=== PATIENT | male | born 1965 | race Caucasian/White ===

== ENCOUNTER 2020-02-11 20:22 | Emergency (ER) | payer MEDICARE, MEDICAID, SELFPAY ==
[2020-02-11 20:35] VITALS: BP 118/69; PULSE 81; RESP 14; TEMP 36.2; O2SAT 99; BMI 33.0
[2020-02-11 21:20] VITALS: BP 144/82; O2SAT 99
[2020-02-11] MEDS: INSULIN REGULAR 100 UNIT/ML 3 ML VIAL 20 UNIT SUBCUT (21:46)
--- NOTE | 2020-02-11 22:03 | ED_ITS ---
HPI - General Adult General Chief complaint: Diabetic Problem Stated complaint: low blood sugar Time Seen by Provider: 02/11/20 21:18 Source: EMS History of Present Illness HPI narrative: 54-year-old type 1 diabetic with significant increased psychosocial stressors recently was at the [facility] did not eat anything all day but did take his usual insulin and had a hypoglycemic episode. His measured sugar was 40 initially, he was alert awake alert and simply felt a bit weak. He was given glucose as well as orange juice and [facility] staff were concerned blood sugar was not coming up quickly enough. Medics were called patient is transported to the emergency department where he continues to feel well and blood sugars continue to be reassuring. Review of Systems Review of Systems Narrative: Pertinent positive and negative findings as per HPI Remainder of review of systems is otherwise unremarkable for Constitutional: Fevers, chills, weakness ENT: No sore throat, neck pain, ear pain CV: Chest pain, palpitations, dyspnea on exertion Respiratory: Cough, wheeze, dyspnea GI: Nausea, vomiting, diarrhea, change in bowel habits, black or bloody stools : Dysuria, hematuria, flank pain MS: Muscle weakness, numbness, joint swelling or warmth Skin: Rashes, nonhealing lesions Neuro: Syncope, dizziness, tingling Patient History Medical History Smoker (Acute) Type 1 diabetes (Acute) Social History Smoking Status: Current every day smoker Smoking Status: Current every day smoker alcohol intake frequency: 0-2 drinks per day Substance Use Type: does not use Exam Narrative Exam Narrative: General: Alert appropriate in no acute distress Respiratory: Able to speak in full sentences, no obvious respiratory distress Skin: No obvious rashes, warm and dry Neurologic: Grossly intact no obvious asymmetries or abnormalities Psych, appropriate insight and affect, cooperative Initial Vital Signs Initial Vital Signs: Vital Signs Temperature 97.2 F L 02/11/20 20:35 Pulse Rate 81 02/11/20 20:35 Respiratory Rate 14 02/11/20 20:35 Blood Pressure 118/69 02/11/20 20:35 Pulse Oximetry 99 02/11/20 20:35 Course Orders Ordered: Discontinued Medications Insulin Glargine (Lantus (Vial)) 20 unit SUBCUT NOW ONE Stop: 02/11/20 21:30 Insulin Human Regular (Humulin R) 20 unit SUBCUT NOW ONE Stop: 02/11/20 21:41 Last Admin: 02/11/20 21:46 Dose: 20 unit Documented by: ALFREDO Cosigned by: RAYMOND Vital Signs Vital signs: Vital Signs - 8 hr 02/11/20 20:35 02/11/20 21:20 Temperature 97.2 F L Pulse Rate 81 Respiratory Rate 14 Blood Pressure 118/69 144/82 H Pulse Oximetry 99 99 Medical Decision Making Lab Data Labs: Point of Care Testing Glucose POC 227 Point of care testing: Point of Care Testing Glucose POC 227 MDM Narrative Medical decision making narrative: 54-year-old type 1 diabetic not eating all day to stressors with hypoglycemic episode that was minimally symptomatic. Resolved at this time. Blood sugars are now higher than his goal after all of the juice and candy that he ate. He is given 20 units of Humalog and is planning to have dinner within the next 30 minutes. He is safe for discharge. Discharge Plan Departure Patient Disposition: Home Clinical Impression: Hypoglycemia Diabetes mellitus Qualifiers: Diabetes mellitus type: type 1 Instructions: DI for Hypoglycemia Activity Restrictions/Additional Instructions: I am sorry that stressors have piled up recently. It still is vital that you eat during the day. I understand how hard it can be sometimes. I very much appreciate the effort that your putting in to keeping your blood sugars under better control. When you do not eat your blood sugars go low. That to happen today. It has come up nicely with food. With perhaps overshot just a bit with your sugar above 200 now. I am going to give you 20 units of your short-acting insulin right now. You need to go home and have dinner. Please add your Humalog correction if needed tonight before bed while your dosing your Lantus. Because you did have this episode of very low sugar today I am going to suggest that you set an alarm for 3am just to check your blood sugar and make sure that is not too low. Good luck with your endocrinology appointment tomorrow!
== END 2020-02-11 21:50 | disposition home or self-care (01) ==
PROVIDERS: Emergency Provider Emergency Medicine
DX: E10.649 Type 1 diabetes mellitus with hypoglycemia without coma (principal); Z79.4 Long term (current) use of insulin
CPT/HCPCS: 82962; 96372; 99282; 99283

== ENCOUNTER 2020-02-13 11:52 | Emergency (ER) | payer MEDICARE, MEDICAID, SELFPAY ==
[2020-02-13] VITALS (20 sets, daily range): BP systolic 134–166; BP diastolic 64–108; PULSE 96–122; RESP 12–38; TEMP 37.1; O2SAT 94–99
[2020-02-13 12:21] LABS: Add Manual Diff / Slide Review NO; Basophils Absolute Auto 100 /uL (0-100); Basophils Percent Auto 0.6 % (0-2); Eosinophils Absolute Auto 0 /uL (0-450); Hematocrit 41.5 % (41-53); Hemoglobin 13.8 g/dL (13.5-17.5); Lymphocytes Absolute Auto 1100 /uL (1100-4500); Lymphocytes Percent Auto 8.3 % (25-40); Mean Corpuscular HGB Conc 33.4 % (30-36); Mean Corpuscular Hemoglobin 30.5 PG (26-34); Mean Corpuscular Volume 91.5 fL (80-100); Monocytes Absolute Auto 1000 /uL (0-900); Neutrophils Absolute Auto 11400 /uL (1500-7000); Neutrophils Percent Auto 84.1 % (50-75); Platelet Count 332 X10^3/uL (150-400); Red Blood Cell Count 4.53 X10^6/uL (4.5-5.9); Red Cell Distribution Width 13.5 % (11.6-14.8); White Blood Cell Count 13.5 X10^3/uL (4.5-11.0)
--- NOTE | 2020-02-13 12:22 | ED.GENADULT ---
HPI - General Adult General Chief complaint: Diabetic Problem Stated complaint: diabetic ketoacidosis Time Seen by Provider: 02/13/20 12:09 Source: patient Mode of arrival: Ambulatory Limitations: no limitations History of Present Illness HPI narrative: CC persistent nausea and vomiting, questionable diabetic ketoacidosis HPI: The patient is a 54-year-old male who is and diabetic. He took a his insulin this morning. He woke up with severe persistent recurrent nausea with vomiting. He states that he has had diabetic ketoacidosis in the past and this is identical to when he develops diabetic ketoacidosis. He has had diffuse abdominal cramps. He has had hiccups with some chest discomfort after hiccuping. He denies any shortness of breath or cough otherwise. He has had palpitations with racing of his heart dizziness with lightheadedness. He has had blurred vision but no loss of vision. He has had chills with sweats but no fever. He has had no headache. He has some degree of arc persistent back ache. There has been no melena hematochezia hematemesis or coffee-ground emesis. He has had mild diarrhea. He has had no urinary symptoms associated with this. He denies a history of pancreatitis hypertension congestive heart failure or heart attack. The patient states that he has a history of hepatitis-C but no HIV TB or Covid. 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 He states that he stopped drinking alcohol when he became diabetic. Related Data Home Medications Medication Instructions Recorded Confirmed amitriptyline 50 mg PO BEDTIME 02/13/20 02/13/20 atorvastatin 20 mg PO DAILY 02/13/20 02/13/20 blood sugar diagnostic [True 02/13/20 02/13/20 Metrix Glucose Test Strip] insulin glargine [Lantus U-100 30 unit SUBCUT BEDTIME 02/13/20 02/13/20 Insulin] insulin glargine [Lantus U-100 35 unit SUBCUT QAM 02/13/20 02/13/20 Insulin] insulin lispro [Humalog U-100 20 - 25 sliding scale dose SUBCUT 02/13/20 02/13/20 Insulin] 5XD insulin syringe-needle U-100 [BD 02/13/20 02/13/20 Insulin Syringe Ultra-Fine] losartan 50 mg PO DAILY 02/13/20 02/13/20 metformin 1,000 mg PO BID 02/13/20 02/13/20 omeprazole 20 mg PO BID 02/13/20 02/13/20 paroxetine HCl 20 mg PO DAILY 02/13/20 02/13/20 prazosin 1 mg PO BEDTIME 02/13/20 02/13/20 Previous Rx's Medication Instructions Recorded diphenhydramine HCl [Benadryl 25 mg PO Q6H PRN #14 tab 02/13/20 Allergy] ondansetron HCl [Zofran] 4 mg PO Q6H PRN #12 tab 02/13/20 prochlorperazine maleate 10 mg PO Q6H PRN #14 tab 02/13/20 [Compazine] Allergies Allergy/AdvReac Type Severity Reaction Status Date / Time No Known Drug Allergies Allergy Verified 02/13/20 12:18 Review of Systems Review of Systems Narrative: Review of systems were all negative except for those mentioned in the history of present illness. Patient History Medical History Smoker (Acute) Type 1 diabetes (Acute) Social History Smoking Status: Current every day smoker Smoking Status: Current every day smoker alcohol intake frequency: 0-2 drinks per day Substance Use Type: former substance user Exam Narrative Exam Narrative: PHYSICAL EXAM: CONSTITUTIONAL: Awake, Alert, Oriented, Coherent, Cooperative, speaks softly, is very dishevelled and sweaty. HEAD: Atraumatic normocephalic. EENT: PERRL, FROM of eyes, no discharge, no nystagmus NOSE:No epistaxis or nasal drainage MOUTH:Oral mucosa is moist and pink. NECK: Supple, no obvious JVD, Trachea is midline without stridor. SPINE: Palpationof the cervical, Thoracic, Lumbar or Sacral spine reveals no gross deformity or tenderness. No CVA tenderness. THORAX: No deformity, retractions, chest wall tenderness. LUNGS: Clear, symmetrical breath sounds without respiratory distress. HEART: Tachycardic, no murmur, regular rhythm. ABDOMEN: Diffusely tender, soft, no palpable mass. No rigidity or rebound. EXTREMITIES: No edema, deformity, tenderness or cyanosis. SKIN: No rash, bruising. NEURO: Awake, alert, oriented, conversive, cranial nerves II-XII are symmetrical , moves all 4 extremities and is ambulatory. MENTAL HEALTH: Does not appear anxious or depressed. Initial Vital Signs Initial Vital Signs: Vital Signs Temperature 98.7 F 02/13/20 11:55 Pulse Rate 122 H 02/13/20 11:55 Respiratory Rate 32 H 02/13/20 11:55 Blood Pressure 142/93 H 02/13/20 11:55 Pulse Oximetry 99 02/13/20 11:55 Course Course Course Narrative: 1237: PH is 7.342 pCO2 is 47.4 bicarb is 25.7 total CO2 is 27. 1355: Patient has received 1 L of IV fluid. He was administered 7 units of regular insulin IV. His potassium is 5.2 ketones are elevated at 2.3 to his venous pH is 7.34 GFR is greater than 60 lactate is 1.5 white blood count is 13.5 anion gap is 13 blood sugar was 445 will repeat a blood sugar. I will call the hospitalist Dr. Allen to admit the patient. 1440: I discussed the patient with Dr. Allen who does not feel as though the patient needs to be admitted at this time. His blood sugar has improved to 264, his urine is positive for methamphetamine, THC, we are waiting for the CT report of his abdomen. Will call radiology to get a report. He is currently being rehydrated him and he has not been vomiting since he has been here in the emergency department. 1516: The patient has received 2 L of normal saline and he remains tachycardic at between 108 and 110. He will be administered 1/3 L of fluid. He is no longer tremulous after being administered the Benadryl and Compazine. He was asking whether not he was going to be admitted to the hospital. I explained to him that the hospitalist initially reviewing his laboratory test did not feel that he need to be admitted to the hospital. The patient's report of the CT scan of his abdomen remains pending. I did not see it in PACS nor do I see it in the patient's medical record viewer. 1532: requested a copy of the CT report from radiology of the abdomen. I can not access the report through PACS and does not appear in our system 1550: The patient is in the process of receiving his 3rd L of fluid. CT scan of the patient's abdomen reveals no imaging explanation is found for this patient's presenting symptoms. Fatty stranding is seen involving the subcutaneous fat within the periumbilical region correlate clinically with potential cellulitis. Incidental note is made of bilateral fat containing inguinal hernias. S shaped scoliotic curvature. Focal L1-2 degenerative changes. 1751: I read discussed the patient with Dr. Allen who did not feel that the patient needed to be admitted to the hospital. The patient's heart rate remained [place] probably secondary to the methamphetamine that he took. The patient was administered 3 L of normal saline to rehydrate him and his heart rate finally came down to90-96. He will be discharged. 1800: The patient was given discharge instructions and he was very upset when I told him that his urine came back positive for methamphetamine. Orders Ordered: Discontinued Medications Diphenhydramine HCl (Benadryl) 25 mg IV NOW ONE Stop: 02/13/20 14:27 Last Admin: 02/13/20 14:47 Dose: 25 mg Documented by: LEYLA Sodium Chloride (Normal Saline 0.9%) 1,000 mls @ 1,000 mls/hr IV BOLUS ONE Stop: 02/13/20 13:12 Last Infusion: 02/13/20 13:55 Dose: 0 mls/hr Documented by: Admin: 02/13/20 12:26 Dose: 1,000 mls/hr Documented by: LEYLA Sodium Chloride (Normal Saline 0.9%) 1,000 mls @ 1,000 mls/hr IV BOLUS ONE Stop: 02/13/20 14:56 Last Infusion: 02/13/20 15:15 Dose: 0 mls/hr Documented by: Admin: 02/13/20 14:01 Dose: 1,000 mls/hr Documented by: LEYLA Sodium Chloride (Normal Saline 0.9%) 1,000 mls @ 1,000 mls/hr IV BOLUS ONE Stop: 02/13/20 16:28 Last Infusion: 02/13/20 16:47 Dose: 0 mls/hr Documented by: Admin: 02/13/20 15:30 Dose: 1,000 mls/hr Documented by: LEYLA Insulin Human Regular (Humulin R) 7 unit SUBCUT NOW ONE Stop: 02/13/20 12:40 Last Admin: 02/13/20 12:44 Dose: 7 unit Documented by: LEYLA Cosigned by: CASSIDY Ketorolac Tromethamine (Toradol) 30 mg IV NOW ONE Stop: 02/13/20 12:25 Last Admin: 02/13/20 12:27 Dose: 30 mg Documented by: LEYLA Morphine Sulfate (Morphine) 4 mg IV NOW ONE Stop: 02/13/20 13:56 Last Admin: 02/13/20 14:00 Dose: 4 mg Documented by: LEYLA Ondansetron HCl (Zofran) 8 mg IV NOW ONE Stop: 02/13/20 12:14 Last Admin: 02/13/20 12:26 Dose: 8 mg Documented by: LEYLA Ondansetron HCl (Zofran) 4 mg IV NOW ONE Stop: 02/13/20 13:57 Last Admin: 02/13/20 14:00 Dose: 4 mg Documented by: LEYLA Prochlorperazine (Compazine) 10 mg IV NOW ONE Stop: 02/13/20 14:27 Last Admin: 02/13/20 14:47 Dose: 10 mg Documented by: LEYLA Vital Signs Vital signs: Vital Signs - 8 hr 02/13/20 11:55 02/13/20 12:05 02/13/20 12:10 Temperature 98.7 F 98.7 F Pulse Rate 122 H 113 H Respiratory Rate 32 H 28 H Blood Pressure 142/93 H Blood Pressure [Left Arm] 142/93 H Pulse Oximetry 99 96 02/13/20 12:11 02/13/20 12:30 02/13/20 12:33 Temperature Pulse Rate 115 H 114 H 110 H Respiratory Rate 35 H 24 Blood Pressure 147/94 H Blood Pressure [Left Arm] Pulse Oximetry 96 95 94 02/13/20 12:55 02/13/20 13:00 02/13/20 13:30 Temperature Pulse Rate 108 H 109 H 108 H Respiratory Rate 33 H 32 H 24 Blood Pressure 166/98 H 166/87 H Blood Pressure [Left Arm] Pulse Oximetry 96 94 96 02/13/20 13:31 02/13/20 14:00 02/13/20 14:30 Temperature Pulse Rate 108 H 121 H 104 H Respiratory Rate 28 H 38 H 25 H Blood Pressure 154/64 H 147/108 H 144/86 H Blood Pressure [Left Arm] Pulse Oximetry 96 97 96 02/13/20 14:47 02/13/20 15:00 02/13/20 15:30 Temperature Pulse Rate 105 H 104 H 102 H Respiratory Rate 25 H 16 Blood Pressure 144/86 H 143/76 H 137/74 Blood Pressure [Left Arm] Pulse Oximetry 02/13/20 16:00 02/13/20 16:04 02/13/20 16:30 Temperature Pulse Rate 101 H 100 H 101 H Respiratory Rate 22 16 19 Blood Pressure 137/77 136/81 Blood Pressure [Left Arm] Pulse Oximetry 98 02/13/20 17:00 02/13/20 17:30 Temperature Pulse Rate 96 H 101 H Respiratory Rate 16 20 Blood Pressure 134/77 144/84 H Blood Pressure [Left Arm] Pulse Oximetry Medical Decision Making Medical Records Medical records reviewed: Yes I reviewed the patient's medical records. Lab Data Lab results reviewed: Yes I reviewed the patient's lab results. Result diagrams: 02/13/20 12:10 02/13/20 14:05 Labs: Lab Results 02/13/20 02/13/20 02/13/20 Range/Units 12:00 12:10 12:10 WBC 13.5 H (4.5-11.0) X10^3/uL RBC 4.53 (4.5-5.9) X10^6/uL Hgb 13.8 (13.5-17.5) g/dL Hct 41.5 (41-53) % MCV 91.5 (80-100) fL MCH 30.5 (26-34) PG MCHC 33.4 (30-36) % RDW 13.5 (11.6-14.8) % Plt Count 332 (150-400) X10^3/uL Neut % (Auto) 84.1 H (50-75) % Lymph % (Auto) 8.3 L (25-40) % [place] % (Auto) 7.0 (3-14) % Eos % (Auto) 0.0 L (2-4) % Baso % (Auto) 0.6 (0-2) % Neut # (Auto) 75142 H (0066-2694) /uL Lymph # (Auto) 1100 (2504-9467) /uL [place] # (Auto) 1000 H (0-900) /uL Eos # (Auto) 0 (0-450) /uL Baso # (Auto) 100 (0-100) /uL VBG pH (7.33-7.43) VBG pCO2 (45-50) mmHg VBG pO2 (35-45) mmHg VBG HCO3 (23-28) mmol/L VBG Total CO2 (24-29) mmol/L VBG O2 Saturation (70-75) % VBG Base Excess (0-4) mmol/L Sodium (137-145) mmol/L Potassium (3.4-5.1) mmol/L Chloride (98-107) mmol/L Carbon Dioxide (22-32) mmol/L BUN (9-20) mg/dL Creatinine (0.66-1.25) mg/dL Estimated GFR (>60) mL/min BUN/Creatinine Ratio (6-22) Glucose (70-100) mg/dL Lactate (0.7-2.1) mmol/L Calcium (8.4-10.2) mg/dL Total Bilirubin (0.2-1.3) mg/dL AST (17-59) IU/L ALT (<50) IU/L Alkaline Phosphatase (38-126) U/L Total Protein (6.3-8.2) g/dL Albumin (3.5-5.0) g/dL Globulin (1.7-4.1) g/dL Albumin/Globulin Ratio (1.0-2.8) Lipase 35 (23-300) U/L Procalcitonin < 0.05 (<0.5) ng/mL Urine Color Urine Appearance Urine pH (4.5-8.0) Ur Specific [place] (1.000-1.035) Urine Protein (Negative) Urine Glucose (UA) (Negative) g/dL Urine Ketones (NEGATIVE) Urine Occult Blood (Negative) Urine Nitrate (Negative) Urine Bilirubin (NEGATIVE) Urine Urobilinogen (0.2) E.U./dL Ur Leukocyte Esterase (NEGATIVE) Urine RBC (0-5/HPF) Urine WBC (0-5/HPF) Ur Squamous Epith Cells (0-5/HPF) Urine Bacteria (None) Ur Culture Indicated? U Opiates 300ng/mL cut (Negative) Ur Oxycodone Screen (Negative) Urine Methadone Screen (Negative) Ur Barbiturates Screen (Negative) U Tricyclic Antidepress (Negative) Ur Phencyclidine Scrn (Negative) Ur Amphetamines Screen (Negative) U Methamphetamines Scrn (Negative) Ur MDMA Scrn (Ecstasy) (Negative) U Benzodiazepines Scrn (Negative) Urine Cocaine Screen (Negative) U Marijuana (THC) Screen (Negative) Ethyl Alcohol < 10 ( - 10) mg/dL Ketones (<0.27) mmol/L 02/13/20 02/13/20 02/13/20 Range/Units 12:10 12:10 12:13 WBC (4.5-11.0) X10^3/uL RBC (4.5-5.9) X10^6/uL Hgb (13.5-17.5) g/dL Hct (41-53) % MCV (80-100) fL MCH (26-34) PG MCHC (30-36) % RDW (11.6-14.8) % Plt Count (150-400) X10^3/uL Neut % (Auto) (50-75) % Lymph % (Auto) (25-40) % [place] % (Auto) (3-14) % Eos % (Auto) (2-4) % Baso % (Auto) (0-2) % Neut # (Auto) (5724-0126) /uL Lymph # (Auto) (4348-8161) /uL [place] # (Auto) (0-900) /uL Eos # (Auto) (0-450) /uL Baso # (Auto) (0-100) /uL VBG pH 7.34 (7.33-7.43) VBG pCO2 47.4 (45-50) mmHg VBG pO2 24 L (35-45) mmHg VBG HCO3 26 (23-28) mmol/L VBG Total CO2 27 (24-29) mmol/L VBG O2 Saturation 38 L (70-75) % VBG Base Excess 0.0 (0-4) mmol/L Sodium 137 (137-145) mmol/L Potassium 5.2 H (3.4-5.1) mmol/L Chloride 101 (98-107) mmol/L Carbon Dioxide 23 (22-32) mmol/L BUN 27 H (9-20) mg/dL Creatinine 0.99 (0.66-1.25) mg/dL Estimated GFR > 60.0 (>60) mL/min BUN/Creatinine Ratio 27.3 H (6-22) Glucose 445 H (70-100) mg/dL Lactate 1.5 (0.7-2.1) mmol/L Calcium 9.9 (8.4-10.2) mg/dL Total Bilirubin 0.8 (0.2-1.3) mg/dL AST 55 (17-59) IU/L ALT 52 H (<50) IU/L Alkaline Phosphatase 131 H (38-126) U/L Total Protein 7.9 (6.3-8.2) g/dL Albumin 4.8 (3.5-5.0) g/dL Globulin 3.1 (1.7-4.1) g/dL Albumin/Globulin Ratio 1.5 (1.0-2.8) Lipase (23-300) U/L Procalcitonin (<0.5) ng/mL Urine Color Urine Appearance Urine pH (4.5-8.0) Ur Specific [place] (1.000-1.035) Urine Protein (Negative) Urine Glucose (UA) (Negative) g/dL Urine Ketones (NEGATIVE) Urine Occult Blood (Negative) Urine Nitrate (Negative) Urine Bilirubin (NEGATIVE) Urine Urobilinogen (0.2) E.U./dL Ur Leukocyte Esterase (NEGATIVE) Urine RBC (0-5/HPF) Urine WBC (0-5/HPF) Ur Squamous Epith Cells (0-5/HPF) Urine Bacteria (None) Ur Culture Indicated? U Opiates 300ng/mL cut (Negative) Ur Oxycodone Screen (Negative) Urine Methadone Screen (Negative) Ur Barbiturates Screen (Negative) U Tricyclic Antidepress (Negative) Ur Phencyclidine Scrn (Negative) Ur Amphetamines Screen (Negative) U Methamphetamines Scrn (Negative) Ur MDMA Scrn (Ecstasy) (Negative) U Benzodiazepines Scrn (Negative) Urine Cocaine Screen (Negative) U Marijuana (THC) Screen (Negative) Ethyl Alcohol ( - 10) mg/dL Ketones 2.32 H (<0.27) mmol/L 02/13/20 02/13/20 02/13/20 Range/Units 14:05 14:05 14:05 WBC (4.5-11.0) X10^3/uL RBC (4.5-5.9) X10^6/uL Hgb (13.5-17.5) g/dL Hct (41-53) % MCV (80-100) fL MCH (26-34) PG MCHC (30-36) % RDW (11.6-14.8) % Plt Count (150-400) X10^3/uL Neut % (Auto) (50-75) % Lymph % (Auto) (25-40) % [place] % (Auto) (3-14) % Eos % (Auto) (2-4) % Baso % (Auto) (0-2) % Neut # (Auto) (9265-9187) /uL Lymph # (Auto) (7302-4021) /uL [place] # (Auto) (0-900) /uL Eos # (Auto) (0-450) /uL Baso # (Auto) (0-100) /uL VBG pH (7.33-7.43) VBG pCO2 (45-50) mmHg VBG pO2 (35-45) mmHg VBG HCO3 (23-28) mmol/L VBG Total CO2 (24-29) mmol/L VBG O2 Saturation (70-75) % VBG Base Excess (0-4) mmol/L Sodium (137-145) mmol/L Potassium (3.4-5.1) mmol/L Chloride (98-107) mmol/L Carbon Dioxide (22-32) mmol/L BUN (9-20) mg/dL Creatinine (0.66-1.25) mg/dL Estimated GFR (>60) mL/min BUN/Creatinine Ratio (6-22) Glucose 265 H D (70-100) mg/dL Lactate (0.7-2.1) mmol/L Calcium (8.4-10.2) mg/dL Total Bilirubin (0.2-1.3) mg/dL AST (17-59) IU/L ALT (<50) IU/L Alkaline Phosphatase (38-126) U/L Total Protein (6.3-8.2) g/dL Albumin (3.5-5.0) g/dL Globulin (1.7-4.1) g/dL Albumin/Globulin Ratio (1.0-2.8) Lipase (23-300) U/L Procalcitonin (<0.5) ng/mL Urine Color Yellow Urine Appearance Clear Urine pH 5.0 (4.5-8.0) Ur Specific [place] 1.010 (1.000-1.035) Urine Protein Negative (Negative) Urine Glucose (UA) 2+ H (Negative) g/dL Urine Ketones 2+ H (NEGATIVE) Urine Occult Blood Negative (Negative) Urine Nitrate Negative (Negative) Urine Bilirubin Negative (NEGATIVE) Urine Urobilinogen 0.2 (0.2) E.U./dL Ur Leukocyte Esterase Negative (NEGATIVE) Urine RBC None seen (0-5/HPF) Urine WBC 0-1/hpf (0-5/HPF) Ur Squamous Epith Cells 0-1 /hpf (0-5/HPF) Urine Bacteria Occasional (0-1) (None) Ur Culture Indicated? Cult not indicated U Opiates 300ng/mL cut Negative (Negative) Ur Oxycodone Screen Negative (Negative) Urine Methadone Screen Negative (Negative) Ur Barbiturates Screen Negative (Negative) U Tricyclic Antidepress Positive H (Negative) Ur Phencyclidine Scrn Negative (Negative) Ur Amphetamines Screen Negative (Negative) U Methamphetamines Scrn Positive H (Negative) Ur MDMA Scrn (Ecstasy) Negative (Negative) U Benzodiazepines Scrn Negative (Negative) Urine Cocaine Screen Negative (Negative) U Marijuana (THC) Screen Positive H (Negative) Ethyl Alcohol ( - 10) mg/dL Ketones (<0.27) mmol/L Point of Care Testing Glucose POC 214 Point of care testing: Point of Care Testing Glucose POC 214 ECG Data Attestation: I personally reviewed and interpreted this ECG as follows: Interpretation: EKG obtained at 12:13 p.m. reveals a normal sinus rhythm with a ventricular rate of 111. QTC is borderline prolonged at 459 milliseconds axis is normal. T-waves are inverted in V1. ST segments are nonspecific and nondiagnostic at this time. Discharge Plan Departure Patient Disposition: Home Clinical Impression: Smoker, Retching, Diabetic ketosis, Acute hyperglycemia, Methamphetamine use Type 1 diabetes Qualifiers: Diabetes mellitus complication status: with other specified complication Qualified Code(s): E10.69 - Type 1 diabetes mellitus with other specified complication Diarrhea Qualifiers: Diarrhea type: unspecified type Qualified Code(s): R19.7 - Diarrhea, unspecified Discharge Date/Time: 02/13/20 18:15 Instructions: DI for Diabetes Type 1 -- Adult, DI for Nausea -- Adult, DI for Vomiting -- Adult, DI for Diabetic Ketoacidosis Activity Restrictions/Additional Instructions: 1. Be sure that you are taking your insulins as directed. 2. You had diabetic ketosis without evidence of acidosis at this time. You were dehydrated. You need to drink between 2 and 4 L of fluid per day to keep yourself hydrated. 3. Avoidance stop using methamphetamine. 4. For your nausea, vomiting and hiccups you can take Compazine 10 mg every 6 hours in combination with Benadryl 25 mg orally. 5. If this does not control your vomiting you can take Zofran 4 mg every 6 hours as needed 6. Follow-up with your primary care physician and be re-evaluated in 48-72 hours. Prescriptions: New prochlorperazine maleate [Compazine] 10 mg tablet 10 mg PO Q6H PRN (Reason: nausea and vomiting) Qty: 14 RF: 0 diphenhydramine HCl [Benadryl Allergy] 25 mg tablet 25 mg PO Q6H PRN (Reason: nausea and vomiting) Qty: 14 RF: 0 ondansetron HCl [Zofran] 4 mg tablet 4 mg PO Q6H PRN (Reason: nausea and vomiting) Qty: 12 RF: 0 No Action losartan 50 mg tablet 50 mg PO DAILY RF: 0 atorvastatin 20 mg tablet 20 mg PO DAILY RF: 0 Lantus U-100 Insulin 100 unit/mL solution 35 unit SUBCUT QAM RF: 0 Lantus U-100 Insulin 100 unit/mL solution 30 unit SUBCUT BEDTIME RF: 0 prazosin 1 mg capsule 1 mg PO BEDTIME RF: 0 (DME) blood sugar diagnostic [True Metrix Glucose Test Strip] Strip MISCELLANEOUS RF: 0 amitriptyline 50 mg tablet 50 mg PO BEDTIME RF: 0 paroxetine HCl 20 mg tablet 20 mg PO DAILY RF: 0 metformin 1,000 mg tablet 1,000 mg PO BID RF: 0 omeprazole 20 mg capsule,delayed release(DR/EC) 20 mg PO BID RF: 0 (DME) insulin syringe-needle U-100 [BD Insulin Syringe Ultra-Fine] 0.5 mL 30 gauge x 1/2 syringe MISCELLANEOUS RF: 0 insulin lispro [Humalog U-100 Insulin] 100 unit/mL solution 20 - 25 sliding scale dose SUBCUT 5XD RF: 0
--- NOTE | 2020-02-13 12:24 | DI.CT.S_ITS ---
PROCEDURE: CT ABDOMEN PELVIS W CON INDICATIONS: persistent abdominal pain with nausea and vomiting TECHNIQUE: After the administration of intravenous contrast, 5 mm thick sections acquired from the diaphragm to the symphysis. 5 mm coronal and sagittal reformats were acquired. For radiation dose reduction, the following was used: automated exposure control, adjustment of mA and/or kV according to patient size. COMPARISON: [facility], CR, XR CHEST 1V, 02/13/2020, 11:43. FINDINGS: Image quality: Excellent. ABDOMEN: Lung bases: Lung bases are clear. Heart size is normal. Solid organs: Liver is normal in size and enhancement. Gallbladder wall is not thickened. Biliary system is non dilated. Pancreas enhances normally. Spleen is normal in size and enhancement. Accessory splenules are seen anterior and inferior to the primary spleen. No adrenal nodules. Kidneys demonstrate normal size and enhancement, without hydronephrosis. Peritoneum and bowel: Bowel loops demonstrate normal wall thickness and caliber. No free fluid or air. Nodes and vessels: No retroperitoneal or mesenteric adenopathy by size criteria. Aorta and inferior vena cava are normal in size. Miscellaneous: No ventral hernias. Fatty stranding can be seen involving the subcutaneous fat of the periumbilical region. PELVIS: Genitourinary: Bladder wall thickness is normal. Miscellaneous: No inguinal adenopathy. Bilateral fat containing inguinal hernias are seen, right larger than left. Bones: No suspicious bony lesions. No vertebral body compression fractures. S-shaped scoliotic curvature is seen. Degenerative changes are seen, which are most prominent at the L1-L2 level. IMPRESSION: No imaging explanation is found for this patient's presenting symptoms. Fatty stranding is seen involving the subcutaneous fat within the periumbilical region. Please correlate for potential cellulitis. Incidental note is made of: Bilateral fat containing inguinal hernias S-shaped scoliotic curvature Focal L1-2 degenerative change. Dictated by: Valeriano Wylie M.D. on 02/13/2020 at 12:20 Approved by: Valeriano Wylie M.D. on 02/13/2020 at 12:23
[2020-02-13] MEDS: ONDANSETRON 4 MG/2 ML INJ 8 MG IV (12:26)
[2020-02-13] MEDS: SODIUM CHLORIDE 0.9% 1,000 ML 1000 ML IV ×3 (12:26→15:30)
--- NOTE | 2020-02-13 12:26 | DI.RAD.S_ITS ---
PROCEDURE: XR CHEST 1V INDICATIONS: abd pain, persistent vomiting , ? DKA TECHNIQUE: One view of the chest was acquired. COMPARISON: None. FINDINGS: Surgical changes and devices: None. Lungs and pleura: Lungs are clear. No pleural effusions or pneumothorax. Mediastinum: The cardiac contours are within normal limits. The aorta demonstrates calcification and tortuosity. Bones and chest wall: No suspicious bony lesions. Overlying soft tissues appear unremarkable. IMPRESSION: Portable chest within normal limits. Dictated by: Valeriano Wylie M.D. on 02/13/2020 at 12:00 Approved by: Valeriano Wylie M.D. on 02/13/2020 at 12:00
[2020-02-13] MEDS: KETOROLAC 60 MG/2 ML VIAL 30 MG IV (12:27)
[2020-02-13 12:31] LABS: Alanine Aminotransferase 52 IU/L (<50); Albumin 4.8 g/dL (3.5-5.0); Albumin Globulin Ratio 1.5 (1.0-2.8); Alkaline Phosphatase 131 U/L (38-126); Aspartate Aminotransferase 55 IU/L (17-59); BUN Creatinine Ratio 27.3 (6-22); Bilirubin Total 0.8 mg/dL (0.2-1.3); Blood Urea Nitrogen 27 mg/dL (9-20); Calcium 9.9 mg/dL (8.4-10.2); Carbon Dioxide 23 mmol/L (22-32); Chloride 101 mmol/L (98-107); Estimated Glomerular Filt Rate > 60.0 mL/min (>60); Globulin 3.1 g/dL (1.7-4.1); Glucose 445 mg/dL (70-100); HEMOLYSIS < 15 (0-50); Lactate (Lactic Acid) 1.5 mmol/L (0.7-2.1); Potassium 5.2 mmol/L (3.4-5.1); Sodium 137 mmol/L (137-145); Total Protein 7.9 g/dL (6.3-8.2)
[2020-02-13 12:33] LABS: Ketones (Beta-Hydroxybutyrate) 2.32 mmol/L (<0.27)
[2020-02-13 12:39] LABS: Ethanol (ETOH) < 10 mg/dL; Lipase 35 U/L (23-300)
[2020-02-13] MEDS: INSULIN REGULAR 100 UNIT/ML 3 ML VIAL 7 UNIT SUBCUT (12:44)
[2020-02-13 12:45] LABS: Procalcitonin < 0.05 ng/mL (<0.5)
[2020-02-13 12:59] LABS: HCO3 VBG 26 mmol/L (23-28); Oxygen Saturation VBG 38 % (70-75); PCO2 VBG 47.4 mmHg (45-50); PO2 VBG 24 mmHg (35-45); Total CO2 VBG 27 mmol/L (24-29); pH VBG 7.34 (7.33-7.43)
[2020-02-13] MEDS: MORPHINE 4 MG/ML INJ IV (14:00)
[2020-02-13] MEDS: ONDANSETRON 4 MG/2 ML INJ IV (14:00)
[2020-02-13 14:17] LABS: Appearance Urine UA CLEAR; Bilirubin Urine UA NEGATIVE (NEGATIVE); Color Urine UA YELLOW; Glucose Urine UA 2+ g/dL (Negative); Ketones Urine UA 2+ (NEGATIVE); Leukocyte Esterase Urine UA NEGATIVE (NEGATIVE); Nitrite Urine UA NEGATIVE (Negative); Occult Blood Urine UA NEGATIVE (Negative); Protein Urine UA NEGATIVE (Negative); Urobilinogen Urine UA 0.2 E.U./dL (0.2)
[2020-02-13 14:23] LABS: UR Morphine/Opiate cutoff 300 Negative (Negative); Ur Creatinine Normal (Normal); Ur Specific Gravity Normal (Normal); Urine Amphetamines Negative (Negative); Urine Barbiturates Negative (Negative); Urine Benzodiazepines Negative (Negative); Urine Cocaine Negative (Negative); Urine MDMA Negative (Negative); Urine Methadone Negative (Negative); Urine Methamphetamines Positive (Negative); Urine Oxycodone Negative (Negative); Urine Phencyclidine Negative (Negative); Urine Tetrahydrocannabinol Positive (Negative); Urine Tricyclic Antidepressant Positive (Negative); Urine pH Normal (Normal)
[2020-02-13 14:24] LABS: Glucose 265 mg/dL (70-100)
[2020-02-13 14:28] LABS: Bacteria Urine Occasional (0-1); Culture Indicated Urine Cult Not Indicated; RBC Urine None Seen (0-5/HPF); Squamous Epithelial Cell Urine 0-1 /HPF (0-5/HPF); WBC Urine 0-1/HPF (0-5/HPF)
[2020-02-13] MEDS: PROCHLORPERAZINE 10 MG/2 ML VIAL IV (14:47)
[2020-02-13] MEDS: diphenhydrAMINE 50 MG/ML VIAL 25 MG IV (14:47)
--- NOTE | 2020-02-13 15:41 | PC.NURSE ---
Pt and sponsor concerned about patients shaking. Explained that Dr. Urrutia is aware and we are giving him more fluids. Pt sponsor asks about us giving pt the full treatment and also looking at his bandages and replacing them. They both verbalizes that surgeon asked for bandages to remain in place until followup however bandages appear soiled. I informed them that we can replaces bandages however we are concerned about patients current medical emergency. Informed of wait for admitting doctor and getting his symptoms under control but we will get his bandages changed as soon as we can. Verbalizes understanding. Also discussed with both parties release of information and verbal consent from patient that we can give information to his sponsor and that his sponsor is an emergency contact in his chart.
--- NOTE | 2020-02-13 16:08 | PC.NURSE ---
Removed old dressings from right wrist and right elbow. both wounds look great. No redness, swelling, drainage noted. Sutures intact. Applied new nonstick dressings and new yudy wraps. Pt tolerated well.
== END 2020-02-13 18:15 | disposition home or self-care (01) ==
PROVIDERS: Emergency Provider Emergency Medicine
DX: E10.10 Type 1 diabetes mellitus with ketoacidosis without coma (principal); Z79.4 Long term (current) use of insulin; E10.65 Type 1 diabetes mellitus with hyperglycemia; R19.7 Diarrhea, unspecified; R11.10 Vomiting, unspecified; F15.10 Other stimulant abuse, uncomplicated
CPT/HCPCS: 36415; 71045; 74177; 80053; 80305; 80320; 81001; 82009; 82805; 82947; 82962; 83605; 83690; 84145; 85025; 87040; 93005; 96361; 96372; 96374; 96375; 96376; 99285; J0780; J1200; J1885; J2270; J2405; Q9967